=== PATIENT | male | born 1985 | race Caucasian/White ===

== ENCOUNTER 2021-12-16 10:54 | Emergency (ER) | payer BC ==
[2021-12-16] MEDS ORDERED: HYDROCODONE/APAP 10/325 TAB ONE (12:10)
[2021-12-16] MEDS ORDERED: CYCLOBENZAPRINE 10 MG TAB ONE (12:10)
[2021-12-16] MEDS ORDERED: LIDOCAINE 4% PATCH ONE (12:11)
[2021-12-16] MEDS ORDERED: KETOROLAC 30 MG/ML INJ ONE (12:11)
--- NOTE | 2021-12-16 12:53 | RAD REPORT ---
EXAM DESCRIPTION: RAD - Lumbar Spine 3 Views - 12/16/2021 12:44 pm CLINICAL HISTORY: LOWER BACK PAIN Radiculopathy COMPARISON: No comparisons FINDINGS: Vertebral body heights appear maintained. No compression fracture noted. Mild disc thinnin g at L5-S1 with small posterior osteophytes. No spondylolysis or spondylolisthesis. IMPRESSION: Minimal lumbosacral spondylosis.
--- NOTE | 2021-12-16 13:28 | ER ---
Nurse's Notes [facility] Name: Burt Tadeo Age: 36 yrs Sex: Male : 1985 Arrival Date: 12/16/2021 Time: 10:57 Bed 8 Private MD: Diagnosis: Low back pain;Strain of muscle, fascia and tendon of lower back Presentation: 12/16 11:06 Chief complaint: Patient states: Digging in his yard this morning and felt a pop in the ww center of his back that dropped him to his knees. Pain is 10/10. Coronavirus screen: Vaccine status: Patient reports receiving the 2nd dose of the covid vaccine. Client denies travel out of the [place] in the last 14 days. Ebola Screen: Patient denies travel to an Ebola-affected area in the 21 days before illness onset. Initial Sepsis Screen: Does the patient meet any 2 criteria? No. Patient's initial sepsis screen is negative. Does the patient have a suspected source of infection? No. Patient's initial sepsis screen is negative. Risk Assessment: Do you want to hurt yourself or someone else? Patient reports no desire to harm self or others. Onset of symptoms was December 16, 2021. 11:06 Method Of Arrival: Ambulatory ww 11:06 Acuity: PAT 4 Triage Assessment: 11:08 General: Appears uncomfortable, Behavior is cooperative. Pain: Complains of pain in ww thoracic area, lumbar area and sacrum. Neuro: Level of Consciousness is awake, alert, obeys commands, Oriented to person, place, time, situation, Speech is normal. Cardiovascular: Patient's skin is warm and dry. Respiratory: Airway is patent Respiratory effort is even, unlabored, Respiratory pattern is regular, symmetrical. GI: No signs and/or symptoms were reported involving the gastrointestinal system. : No signs and/or symptoms were reported regarding the genitourinary system. Derm: Skin is healthy with good turgor. Musculoskeletal: Circulation, motion, and sensation intact. Historical: - Allergies: 11:08 No Known Allergies; ww - Home Meds: 11:08 None [Active]; ww - PMHx: 11:08 None; ww - PSHx: 11:08 None; ww - Immunization history:: Adult Immunizations not up to date. - Social history:: Smoking status: Patient denies any tobacco usage or history of. Screenin:09 Abuse screen: Denies threats or abuse. Denies injuries from another. Nutritional ww screening: No deficits noted. Tuberculosis screening: No symptoms or risk factors identified. 13:03 Fall Risk None identified. jg9 Assessment: 11:37 Musculoskeletal: Reports pain in back and lumbar area since 12/16/21. jg9 13:00 Reassessment: Patient states feeling better. Patient states symptoms have improved. jg9 Patient able to move without having extreme pain in back. . Vital Signs: 11:06 BP 152 / 105; Pulse 96; Resp 18; Pulse Ox 96% on R/A; Weight 117.93 kg; Height 5 ft. 10 ww in. (177.80 cm); Pain 10/10; 13:00 BP 130 / 98; Pulse 87; Resp 17 S; Pulse Ox 98% ; Pain 7/10; jg9 11:06 Body Mass Index 37.31 (117.93 kg, 177.80 cm) ww ED Course: 10:57 Patient arrived in ED. as 11:08 Triage completed. ww 11:28 Mario Gomez NP is PHCP. pm1 11:28 Jan Lala MD is Attending Physician. pm1 11:32 Rebekah Gary, LINDA is Primary Nurse. jg9 11:38 Arm band placed on right wrist. jg9 11:38 Patient has correct armband on for positive identification. jg9 12:44 Lumbar Spine (3 Views) XRAY In Process Unspecified. EDMS 13:02 No apparent distress. Resting quietly. Awaiting radiology results. jg9 13:48 No provider procedures requiring assistance completed. jg9 13:49 Patient did not have IV access during this emergency room visit. jg9 13:51 Patient d/c and walked out per his request. jg9 Administered Medications: 12:10 Drug: Ketorolac 60 mg Route: IM; Site: right vastus lateralis; jg9 13:50 Follow up: Response: No adverse reaction; Marked relief of symptoms; Pain is decreased jg9 12:11 Drug: [place] (HYDROcodone-acetaminophen) 10 mg-325 mg 1 tabs {Note: RASS-0.} Route: PO; jg9 13:50 Follow up: Response: No adverse reaction; Marked relief of symptoms; Pain is decreased jg9 12:11 Drug: Flexeril (cyclobenzaprine) 10 mg Route: PO; jg9 13:49 Follow up: Response: No adverse reaction; Marked relief of symptoms; Pain is decreased jg9 12:12 Drug: Lidoderm Patch 5 % (700 mg/patch) 1 patches {Note: mid lower back.} Route: jg9 Topical; Site: affected area; 13:49 Follow up: Response: No adverse reaction; Marked relief of symptoms; Pain is decreased jg9 Outcome: 13:28 Discharge ordered by MD. pm1 13:48 Discharged to home ambulatory. jg9 13:48 Condition: improved 13:48 Discharge instructions given to patient, Instructed on discharge instructions, follow up and referral plans. Demonstrated understanding of instructions, follow-up care, medications, Prescriptions given X 4. 13:49 Patient left the ED. jg9 Signatures: Dispatcher [employer] EDBritt Foss Patrick, GABRIELLE COLLEGE PRESIDENT pm1 Rebekah Gary RN RN jg9 Michelle Lewis RN RN ww
--- NOTE | 2021-12-16 13:29 | EDPHYS ---
Physician Documentation [facility] Name: Burt Tadeo Age: 36 yrs Sex: Male : 1985 Arrival Date: 12/16/2021 Time: 10:57 Bed 8 Private MD: ED Physician Jan Lala HPI: 12/16 11:56 This 36 yrs old Male presents to ER via Ambulatory with complaints of Back Pain. pm1 11:56 The patient presents with pain that is acute. The symptoms are located in the low back. pm1 Onset: The symptoms/episode began/occurred this morning. The pain does not radiate. Associated signs and symptoms: Pertinent negatives: headache, incontinence, numbness, tingling, weakness. The problem was sustained Digging a hole with a shovel and then he felt his back pop. Modifying factors: The patient symptoms are alleviated by remaining still, the patient symptoms are aggravated by movement. Severity of symptoms: in the emergency department the symptoms are actually worse. The patient has not experienced similar symptoms in the past. The patient has not recently seen a physician. Historical: - Allergies: 11:08 No Known Allergies; ww - Home Meds: 11:08 None [Active]; ww - PMHx: 11:08 None; ww - PSHx: 11:08 None; ww - Immunization history:: Adult Immunizations not up to date. - Social history:: Smoking status: Patient denies any tobacco usage or history of. ROS: 11:56 Constitutional: Negative for fever, chills, and weight loss, Cardiovascular: Negative pm1 for chest pain, palpitations, and edema, Respiratory: Negative for shortness of breath, cough, wheezing, and pleuritic chest pain. 11:56 : Negative for injury, bleeding, discharge, and swelling, MS/Extremity: Negative for injury and deformity, Skin: Negative for injury, rash, and discoloration, Neuro: Negative for headache, weakness, numbness, tingling, and seizure. 11:56 Back: Positive for pain with movement, of the low back area. 11:56 All other systems are negative. Exam: 11:56 Constitutional: This is a well developed, well nourished patient who is awake, alert, pm1 and in no acute distress. Head/Face: Normocephalic, atraumatic. 11:56 Skin: Warm, dry with normal turgor. Normal color with no rashes, no lesions, and no evidence of cellulitis. MS/ Extremity: Pulses equal, no cyanosis. Neurovascular intact. Full, normal range of motion. 11:56 Cardiovascular: Exam negative for acute changes, Rate: normal, Rhythm: regular, Pulses: no pulse deficits are appreciated. 11:56 Respiratory: Exam negative for acute changes, respiratory distress, shortness of breath. 11:56 Abdomen/GI: Exam negative for acute changes, Inspection: abdomen appears normal, Palpation: abdomen is soft and non-tender, in all quadrants. 11:56 Back: normal spinal alignment noted, muscle spasm, is appreciated in the lumbar area and right low back. 11:56 Neuro: Exam negative for acute changes, Orientation: is normal, Mentation: is normal, Motor: is normal, moves all fours. Vital Signs: 11:06 BP 152 / 105; Pulse 96; Resp 18; Pulse Ox 96% on R/A; Weight 117.93 kg; Height 5 ft. 10 ww in. (177.80 cm); Pain 10/10; 13:00 BP 130 / 98; Pulse 87; Resp 17 S; Pulse Ox 98% ; Pain 7/10; jg9 11:06 Body Mass Index 37.31 (117.93 kg, 177.80 cm) MDM: 11:32 Patient medically screened. [facility] 13:25 Data reviewed: vital signs. Data interpreted: Pulse oximetry: on room air is 98 %. pm1 Interpretation: normal. Counseling: I had a detailed discussion with the patient and/or guardian regarding: the historical points, exam findings, and any diagnostic results supporting the discharge/admit diagnosis, radiology results, the need for outpatient follow up, to return to the emergency department if symptoms worsen or persist or if there are any questions or concerns that arise at home. 12/16 11:56 Order name: Lumbar Spine (3 Views) XRAY; Complete Time: 13:15 pm1 Administered Medications: 12:10 Drug: Ketorolac 60 mg Route: IM; Site: right vastus lateralis; jg9 13:50 Follow up: Response: No adverse reaction; Marked relief of symptoms; Pain is decreased jg9 12:11 Drug: [place] (HYDROcodone-acetaminophen) 10 mg-325 mg 1 tabs {Note: RASS-0.} Route: PO; jg9 13:50 Follow up: Response: No adverse reaction; Marked relief of symptoms; Pain is decreased jg9 12:11 Drug: Flexeril (cyclobenzaprine) 10 mg Route: PO; jg9 13:49 Follow up: Response: No adverse reaction; Marked relief of symptoms; Pain is decreased jg9 12:12 Drug: Lidoderm Patch 5 % (700 mg/patch) 1 patches {Note: mid lower back.} Route: jg9 Topical; Site: affected area; 13:49 Follow up: Response: No adverse reaction; Marked relief of symptoms; Pain is decreased jg9 Disposition Summary: 12/16/21 13:28 Discharge Ordered Location: Home pm1 Problem: new pm1 Symptoms: have improved pm1 Condition: Stable pm1 Diagnosis - Low back pain pm1 - Strain of muscle, fascia and tendon of lower back pm1 Followup: pm1 - With: Emergency Department - When: As needed - Reason: Worsening of condition Followup: pm1 - With: Private Physician - When: 2 - 3 days - Reason: Recheck today's complaints, Continuance of care, Re-evaluation by your physician Discharge Instructions: - Discharge Summary Sheet pm1 - Acute Back Pain, Adult pm1 - Muscle Strain pm1 - Back Injury Prevention, [id number] pm1 - Musculoskeletal Pain pm1 Forms: - Medication Reconciliation Form pm1 - Thank You Letter pm1 - Antibiotic Education pm1 - Prescription Opioid Use pm1 Prescriptions: - Lidoderm 5 % Topical adhesive patch,medicated - apply 1 patch by TRANSDERMAL route once daily As needed 12 hours on and 12 pm1 hours off in a 24 hour period; 10 patch; Refills: 0, Product Selection Permitted - Diclofenac Sodium 75 mg Oral tablet,delayed release (DR/EC) - take 1 tablet by ORAL route 2 times per day As needed; 30 tablet; Refills: 0, pm1 Product Selection Permitted - Cyclobenzaprine 10 mg Oral Tablet - take 1 tablet by ORAL route every 8 hours As needed; 30 tablet; Refills: 0, pm1 Product Selection Permitted - Tylenol-Codeine #3 300 mg-30 mg Oral - take 2 tablet by ORAL route every 6 hours As needed; 20 tablet; Refills: 0, pm1 Product Selection Permitted Addendum: 12/17/2021 18:25 Co-signature as Attending Physician, Jan Spike MD I agree with the assessment and c serna plan of care. Signatures: Dispatcher [employer] Jan Pinedo MD MD cha Marinas, Patrick, GABRIELLE ELECTRONIC SYSTEM ENGINEER pm1 Rebekah Gary, RN RN jg9 Michelle Lewis RN RN ww
[2021-12-16 14:10] VITALS: BP 130/98; O2SAT 98
== END 2021-12-16 13:49 | disposition home or self-care (01) ==
LOC: ER 10:54
DX: S39.012A Strain of muscle, fascia and tendon of lower back, initial encounter (principal); Y93.H1 Activity, digging, shoveling and raking
CPT/HCPCS: 72100; 96372; 99283